=== PATIENT | female | born 1990 | race Caucasian/White ===

== ENCOUNTER 2018-09-11 10:23 | Emergency (ER) | payer OTHER, MEDICAID ==
[~2018-09-11] VITALS: Ht 172.7 cm; Wt 99.8 kg
[2018-09-11 10:49] LABS: URINE BILIRUBIN NEGATIVE (Negative); URINE BLOOD TRACE (Negative); URINE CLARITY CLEAR; URINE COLOR YELLOW; URINE GLUCOSE-RANDOM NEGATIVE (Negative); URINE KETONES NEGATIVE (Negative); URINE LEUKOCYTES NEGATIVE (Negative); URINE NITRITE NEGATIVE (Negative); URINE PROTEIN 1+ (Negative); URINE SPECIFIC GRAVITY 1.025 (1.005-1.030); URINE UROBILINOGEN 0.2 E.U./dl (0.2-1.0)
[2018-09-11 10:54] LABS: ABSOLUTE BASOPHILS 0.1 thou/uL (0.0-0.2); ABSOLUTE EOSINOPHILS 0.1 thou/uL (0.0-0.7); ABSOLUTE LYMPHOCYTES 1.9 thou/uL (0.8-5.3); ABSOLUTE MONOCYTES 0.7 thou/uL (0.0-1.2); ABSOLUTE NEUTROPHILS 10.8 thou/uL (1.6-8.1); BASOPHILS 0.5 %; EOSINOPHILS 0.5 %; HEMATOCRIT 39.8 % (37.0-47.0); HEMOGLOBIN 13.3 gm/dL (12.0-15.0); LYMPHOCYTES 14.2 %; MCH 29.9 pg (26.0-34.0); MCHC 33.4 g/dL (28.0-37.0); MCV 89.4 fL (80.0-100.0); MONOCYTES 5.1 %; MPV 8.3 fl. (7.2-11.1); NUCLEATED RBCS 0 /100WBC; PLATELET COUNT* 217 thou/uL (150-400); POLYS 79.7 %; RBC 4.45 mil/uL (4.20-5.00); RDW-CV 13.2 % (10.5-14.5); WBC 13.6 thou/uL (4.0-11.0)
[2018-09-11 11:08] LABS: ALBUMIN 3.1 g/dL (3.4-5.0); CALCIUM 8.4 mg/dL (8.5-10.1); CREATININE 0.8 mg/dL (0.6-1.3); POTASSIUM 3.5 mmol/L (3.5-5.1); TOTAL BILIRUBIN 0.5 mg/dL (<0.1-1.0); TOTAL PROTEIN 6.9 g/dL (6.4-8.2)
[2018-09-11] MEDS ORDERED: BENTYL 20 MG TA20 M1 PO (12:27)
[2018-09-11] MEDS ORDERED: FLAGYL500 M1 PO (12:40)
[2018-09-11] MEDS ORDERED: MEDROL DOSPAK21 TA1 PO (12:40)
[2018-09-11] MEDS ORDERED: CIPRO500 MG PO (12:40)
[2018-09-11 12:45] VITALS: BP 128/65
== END 2018-09-11 12:46 | disposition home or self-care (01) ==
LOC: M.ERS 10:23
PROVIDERS: Nurse Practitioner Family
DX: K52.9 Noninfective gastroenteritis and colitis, unspecified (principal); Z98.890 Other specified postprocedural states

== ENCOUNTER 2020-03-25 08:44 | Emergency (ER) | payer OTHER, MEDICAID ==
[~2020-03-25] VITALS: Ht 172.7 cm; Wt 124.7 kg
[~2020-03-25 08:44] MED LIST: BENTYL 20 MG TA20 M1 PO; CIPRO500 MG PO; FLAGYL500 M1 PO; MEDROL DOSPAK21 TA1 PO
[2020-03-25 09:14] LABS: ABSOLUTE BASOPHILS 0.1 thou/uL (0.0-0.2); ABSOLUTE EOSINOPHILS 0.3 thou/uL (0.0-0.7); ABSOLUTE LYMPHOCYTES 2.3 thou/uL (0.8-5.3); ABSOLUTE MONOCYTES 0.6 thou/uL (0.0-1.2); ABSOLUTE NEUTROPHILS 7.7 thou/uL (1.6-8.1); BASOPHILS 0.9 %; EOSINOPHILS 2.5 %; HEMOGLOBIN 13.4 gm/dL (12.0-15.0); LYMPHOCYTES 21.1 %; MCH 29.7 pg (26.0-34.0); MCHC 32.6 g/dL (28.0-37.0); MONOCYTES 5.6 %; MPV 7.9 fl. (7.2-11.1); NUCLEATED RBCS 0 /100WBC; PLATELET COUNT* 299 thou/uL (150-400); POLYS 69.9 %; RBC 4.51 mil/uL (4.20-5.00); RDW-CV 13.3 % (10.5-14.5)
[2020-03-25 09:34] LABS: URINE BILIRUBIN NEGATIVE (Negative); URINE BLOOD 1+ (Negative); URINE CLARITY CLEAR; URINE COLOR YELLOW; URINE GLUCOSE-RANDOM NEGATIVE (Negative); URINE KETONES NEGATIVE (Negative); URINE LEUKOCYTES-REFLEX NEGATIVE (Negative); URINE NITRITE-REFLEX NEGATIVE (Negative); URINE PROTEIN NEGATIVE (Negative); URINE SPECIFIC GRAVITY >= 1.030 (1.005-1.030); URINE UROBILINOGEN 0.2 E.U./dl (0.2-1.0)
[2020-03-25 09:36] LABS: CALCIUM 8.7 mg/dL (8.5-10.1); CREATININE 0.9 mg/dL (0.6-1.3); POTASSIUM 4.4 mmol/L (3.5-5.1)
[2020-03-25 09:41] LABS: ALBUMIN 3.6 g/dL (3.4-5.0); TOTAL BILIRUBIN 0.3 mg/dL (<0.1-1.0); TOTAL PROTEIN 7.1 g/dL (6.4-8.2)
[2020-03-25 09:46] LABS: CASTS None Seen /LPF (None Seen); CRYSTALS None Seen /LPF (None Seen); SQUAMOUS 0-3 Few /LPF (0-3); URINE RBC 0-2 Rare /HPF (0-2); URINE WBC-REFLEX 0-5 Rare /HPF (0-5)
[2020-03-25] MEDS ORDERED: FLAGYL500 M1 PO (10:44)
[2020-03-25] MEDS ORDERED: CIPROFLOXACIN500 M1 PO (10:44)
[2020-03-25] MEDS ORDERED: ZOFRAN ODT4 MG PO (10:46)
[2020-03-25] MEDS ORDERED: HYDROCODON-ACE1 EAC7 PO (10:46)
[2020-03-25 11:06] VITALS: BP 109/69
== END 2020-03-25 11:30 | disposition home or self-care (01) ==
LOC: M.ERS 08:44
PROVIDERS: Personal Emergency Response Attendant
DX: K52.9 Noninfective gastroenteritis and colitis, unspecified (principal); Z98.51 Tubal ligation status

== ENCOUNTER 2021-06-11 04:28 | Emergency (ER) | payer OTHER, MEDICAID ==
[~2021-06-11] VITALS: Ht 172.7 cm; Wt 129.3 kg
[~2021-06-11 04:28] MED LIST changes: +CIPROFLOXACIN500 M1 PO; +HYDROCODON-ACE1 EAC7 PO; +ZOFRAN ODT4 MG PO
[2021-06-11] MEDS ORDERED: FLONASE 0.05%50 MCG NARES (04:40)
[2021-06-11 06:07] LABS: URINE BILIRUBIN NEGATIVE (Negative); URINE BLOOD NEGATIVE (Negative); URINE CLARITY CLEAR; URINE COLOR YELLOW; URINE GLUCOSE-RANDOM NEGATIVE (Negative); URINE KETONES NEGATIVE (Negative); URINE LEUKOCYTES-REFLEX NEGATIVE (Negative); URINE NITRITE-REFLEX NEGATIVE (Negative); URINE PROTEIN NEGATIVE (Negative); URINE UROBILINOGEN 0.2 E.U./dl (0.2-1.0)
[2021-06-11] MEDS ORDERED: CARAFATE1 GM PO (06:52)
[2021-06-11] MEDS ORDERED: PREDNISONE50 MG PO (06:52)
[2021-06-11 07:42] VITALS: BP 124/86
--- NOTE | 2021-06-11 13:47 | EKG ---
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
== END 2021-06-11 07:45 | disposition home or self-care (01) ==
LOC: M.ERS 04:28
PROVIDERS: Personal Emergency Response Attendant
DX: L50.9 Urticaria, unspecified (principal); K22.4 Dyskinesia of esophagus; Z98.51 Tubal ligation status; Z79.899 Other long term (current) drug therapy; R11.0 Nausea